=== PATIENT | male | born 1950 | race Caucasian/White ===

== ENCOUNTER → 2020-04-25 | Outpatient (CLI) | payer MEDICARE ==
[~2020-04-25] MED LIST: ACET325T9 PO; AMLO-187 PO; ASPI-630 PO; ATEN25TA PO; BUPIVACAINE MPF 0.25% 10 ML VIAL. ONE; EVOL140P3 SQ; GLIP5TAB10 PO; GLUC-11 PO; INSU100C SQ; INSU100I30 SQ; METF10007 PO; MULT-252 PO; methylPREDNISolone ACETATE 40 MG/ML VIAL. ONE
--- NOTE | 2020-04-25 12:44 | PDOC1 ---
INITIAL PAIN CONSULT DATE OF SERVICE: DOS: DATE: 04/25/20 TIME: 12:35 CHIEF COMPLAINT: Chief Complaint: Bilateral lower extremity pain HISTORY OF PRESENT ILLNESS: 69-year-old male presents history of pain starting after an injury he reports he was pulled from a hospital bed after coronary artery bypass grafting approximate 1 year ago June 01, 2019. Patient reports that time he had no pain prior to that except for postsurgical pain but now has a right rotator cuff tear and pain in the bilateral lower extremities and some in the low back initially but that has cleared up to some extent. Patient reports he has pain in the lateral thighs bilaterally from the hip to the knee essentially some in the anterior thighs as well. Patient reports it stabbing intermittently can be sharp and knifelike and constant numbness in the lateral aspects of the thighs as well patient reports that sharp pain come and go without any expectable pattern but usually more noticeable with standing or walking but can awaken him from sleep at night but not most nights. Patient ports is not effective bowel bladder control but does affect his ability to walk at times patient has had physical therapy which is not helpful is also taking Tylenol which has been mildly helpful as well patient have MRI scan lumbar spine showing multiple levels of degenerative changes and bulging disks L3-4 L4-5 L5-S1 with disc osteophyte complexes and some moderate bilateral foraminal narrowing at L3-4 and L45 as well as L5-S1 with marked right foraminal narrowing at L5-S1. Patient reports no overt motor loss but significant fatigability of both lower extremities with ambulation. PAST MEDICAL HISTORY: PMH: Coronary artery disease, diabetes, arthritis PREVIOUS SURGERIES: Past Surgical Hx: Coronary artery bypass grafting May 2019, throat surgery, facial lymph node excision, left shoulder surgery 1998 CURRENT MEDICATIONS: Current Meds: Active Scripts Medications Dose Route/Sig Max Daily Dose Days Date Category One Daily Men's Health Tablet (Multivits-Minerals/Fa/Lycopene) 1 Each Tablet 1 Tab PO DAILY 30 04/25/20 Reported Humalog (Insulin Lispro) 100 Unit/1 Ml Cartridge 100 Unit SQ PRN PRN 04/25/20 Reported Repatha Sureclick (Evolocumab) 140 Mg/1 Ml Pen.injctr 1 Syr SQ Q2WKS 28 04/25/20 Reported Tresiba Flextouch U-100 (Insulin Degludec) 100 Unit/1 Ml Insuln.pen 10 Unit SQ DAILY 04/25/20 Reported Tylenol (Acetaminophen) 325 Mg Tablet 500 Mg PO 2-3XD 04/25/20 Reported Cidaflex Tablet (Glucosamine Hcl/Chondr Johnson A Na) 1 Each Tablet 1 Each PO DAILY PRN 04/25/20 Reported Glipizide 5 Mg Tablet 1 Tab PO DAILY 04/25/20 Reported Aspirin 81 Mg Tab.chew 1 Tab PO DAILY 04/25/20 Reported Amlodipine Besylate 10 Mg Tablet 10 Mg PO DAILY 04/25/20 Reported Metformin Hcl 1,000 Mg Tablet 1,000 Mg PO BIDWMEALS 04/25/20 Reported Atenolol 25 Mg Tablet 1 Tab PO DAILY 04/25/20 Reported ALLERGIES; Allergies: Coded Allergies: Snwzlhz-Phx-Vuc Reductase Inhibitor (Verified Allergy, Intermediate, 04/25/20) Pain musle tears hyperglycemia aspirin (Verified Allergy, Intermediate, shock, 04/25/20) metoprolol (Verified Allergy, Intermediate, swelling, 04/25/20) FAMILY HISTORY: Family Hx: Heart disease SOCIAL HISTORY: Social Hx: Patient is under alcohol does not smoke does not use any illegal illicit recreational drugs is single lives locally in [facility] REVIEW OF SYSTEMS: ROS: Positive for those items mentioned in history of present illness, all systems are reviewed, otherwise negative, is complete full and well-documented on patient's chart PHYSICAL EXAM: VS: Blood pressure is 154/81 pulse 71 respirations 18 temperature 98.1 F height is 6 foot weight is 273 pounds PE: PHYSICAL EXAMINATION: GENERAL: The patient is awake, alert, oriented, appropriate, very pleasant demeanor HEENT: Shows normocephalic, atraumatic. Extraocular movements are intact and symmetrical. Oral cavity: Mucous membranes moist and pink. Dentition is intact. NECK: Shows anterior throat supple without palpable lymphadenopathy noted. Swallow reflex symmetrical. CHEST: Shows normal on inspection. Sternotomy scar noted breath sounds are clear bilaterally, no rales rhonchi wheezes auscultated. HEART: Shows S1, S2 clear. No murmurs auscultated. ABDOMEN: Soft, nontender, nondistended, obese. No palpable organomegaly is noted. No rebound or guarding demonstrated. BACK: Shows spine grossly in the midline. Normal-appearing cervical lordotic curvature. There is increased thoracic kyphosis, some minor flattening of the lumbar lordotic curvature. Lumbar paraspinous muscles show symmetrical on inspection, on palpation shows some mild tenderness diffusely throughout the upper, middle and lower distribution of the paraspinous muscles bilaterally without specific trigger points, without radiation of pain. The patient has good rotational motion of the lumbar spine, both laterally as well as extension and flexion without significant difficulty. No tenderness over the spinous processes, sacrum or sacroiliac regions. EXTREMITIES: Lower extremities show deep tendon reflexes 1+ in the patellar and tendo calcaneus tendons. Motor exam is 5 on a scale of 5 with right dorsiflexion, extension, quadriceps and hamstring flexion and 5/5 on the left. Peripheral pulses are 1+ posterior tibial. No peripheral edema is noted bilaterally. Lower extremities are warm and dry to touch, equal in color and appearance. Straight leg raise noted to be negative bilaterally. Gaenslen's and Konstantin's maneuvers are negative as well. Patient's lateral thigh shows significant tenderness over the iliotibial tendon at the insertion site es pecially above the knee laterally as well as at the hip laterally bilaterally somewhat more tender on the right with palpation but significantly tender on the left as well. Patient shows good extension flexion at the hip as well as abduction and adduction without significant increase in pain. The patient is able to stand, stand on his toes without significant difficulty or loss of balance walks with a normal-appearing gait for short distance the office today but without using any assistive devices. SKIN: Shows warm and dry, good turgor. No edema. No sores, rashes or bruising throughout. IMPRESSION: Impression: 69-year-old male with approximate 1 year history pain bilateral lower extremities after injury June 01, 2019 MRI scan lumbar spine as noted Diabetes Arthritis Plan: Options were discussed with the patient. Including conservative medical management is interventional techniques as well as physical therapies. Patient would like to pursue interventional techniques we discussed iliotibial band injection bilaterally using description as well as anatomical models to describe the procedure. Risks discussed including but not limited to bleeding infection possibility of intravascular injection sequelae spread local acetic numbness side effects of steroid medication and portal scarring pain control. Patient understands wished to proceed. Patient return to clinic in approximate 2 weeks for follow-up, was counseled as to return appointment activity level and side effects to be aware of. Under sterile prep and drape patient in supine position patient's iliotibial bands were injected using 25-gauge needle at both the hip insertion and the lateral insertion at the knee after negative aspiration. Total of 10 cc 0.25% ropivacaine (2.5 cc at each injection site) and total of 40 mg Depo-Medrol. Patient tolerated procedure well had no complications. Patient return to clinic in approximate 2 weeks for follow-up. BRENDA DHALIWAL MD Apr 25, 2020 12:44
== END | disposition home or self-care (01) ==
LOC: UNMERGE 10:52 → PNCL 10:52 → MERGE 10:52
PROVIDERS: ATTEND Anesthesiology
DX: M79.605 Pain in left leg (principal); M79.604 Pain in right leg; I25.10 Atherosclerotic heart disease of native coronary artery without angina pectoris; E11.9 Type 2 diabetes mellitus without complications; M19.90 Unspecified osteoarthritis, unspecified site; Z79.4 Long term (current) use of insulin; Z79.899 Other long term (current) drug therapy; Z98.890 Other specified postprocedural states
CPT/HCPCS: 20550; J1030; J3490; 20553

== ENCOUNTER → 2020-05-13 | Outpatient (CLI) | payer MEDICARE ==
[~2020-05-13] MED LIST changes: -BUPIVACAINE MPF 0.25% 10 ML VIAL. ONE; +IOHEXOL 180 MG/ML 10 ML VIAL. ONE; +methylPREDNISolone ACETATE 80 MG/ML VIAL. ONE
--- NOTE | 2020-05-13 13:02 | PDOC ---
Progress Note - Pain Clinic Date of Service: DOS: DATE: 05/13/20 TIME: 12:59 Diagnosis: Dx: Lumbar radiculopathy with lumbar degenerative disease Iliotibial band syndromebilateral History or Present Illness: HPI: 69-year-old male returns follow-up status post iliotibial band injections bilaterally. Patient reports no significant decrease in pain in his leg pain and now has more pain in the low back itself bilaterally radiating from the right to the left and slightly more on the left side but present bilaterally patient reports is burning and aching and sharp in the lower extremities can be constant with walking standing on and off in intensity with on and off stabbing pain in the back itself patient reports it is a 7-9 on scale 10 is worse over the past week 7 on average 7 its least is a 7 today. Patient reports no new motor or sensory deficits no new bowel or bladder incontinence or other complai nts. We did discuss the MRI scan with the patient and reviewed it with him today as well. Physical Exam: VS: Blood pressure is 161/78, pulse 83 respirations 20 temperature is 98.3 F weight is 276 pounds PE: PHYSICAL EXAMINATION: GENERAL: The patient is awake, alert, oriented, appropriate, very pleasant demeanor HEENT: Shows normocephalic, atraumatic. Extraocular movements are intact and symmetrical. Oral cavity: Mucous membranes moist and pink. NECK: Shows anterior throat supple without palpable lymphadenopathy noted. Swallow reflex symmetrical. CHEST: Shows normal on inspection. Breath sounds are clear bilaterally. HEART: Shows S1, S2 clear. No murmurs auscultated. ABDOMEN: Soft, nontender, nondistended, obese. No palpable organomegaly is noted. No rebound or guarding demonstrated. BACK: Shows spine grossly in the midline. Normal-appearing cervical lordotic curvature. There is slightly increased thoracic kyphosis, some minor flattening of the lumbar lordotic curvature. Lumbar paraspinous muscles show symmetrical on inspection, on palpation shows some moderate tenderness diffusely throughout the upper, middle and lower distribution of the paraspinous muscles, but without specific trigger points, without radiation of pain. The patient has good rotational motion of the lumbar spine, both laterally as well as extension and flexion without significant difficulty. No tenderness over the spinous processes, sacrum or sacroiliac regions. EXTREMITIES: Lower extremities show deep tendon reflexes 1+ in the patellar and tendo calcaneus tendons. Motor exam is 5 on a scale of 5 with right dorsiflexion, extension, quadriceps and hamstring flexion and 5/5 on the left. Peripheral pulses are 1+ posterior tibial. No peripheral edema is noted bilaterally. Lower extremities are warm and dry to touch, equal in color and appearance. SKIN: Shows warm and dry, good turgor. No edema. No sores, rashes or bruising throughout. Procedure: Procedure: Options were discussed with the patient. Patient will chart reviews his current medication regimen updated current review of systems updated today as well. We will proceed with a lumbar epidural steroid injection today with fluoroscopic guidance. Risks were discussed including but not limited to: Bleeding, infection, possibility of epidural hematoma and subsequent neurological compromise, dural puncture, headaches, spinal cord and/or nerve damage, side effects of steroid medication, and poor results regarding pain control. Patient understands wished to proceed. Patient return to clinic in approximate 2 weeks for follow-up was counseled as to return appointment activity level and side effects to be aware of. Medication Injected: Med Injected: Procedure is lumbar epidural steroid injection under local anesthetic using sterile prep and drape at the L4-5 level using C-arm fluoroscopic guidance in both AP and lateral views medications injected is 120 mg Depo-Medrol + 10 mL preservative-free normal saline and 2 mL contrast- condition at discharge is stable patient tolerated procedure well had no complications. Condition at Discharge: Condition at Discharge: Condition at discharge stable, patient tolerated the procedure well and had no complications. BRENDA DHALIWAL MD May 13, 2020 13:02
== END | disposition home or self-care (01) ==
LOC: PNCL 11:23 → MERGE 11:40 → UNMERGE 11:40
PROVIDERS: ATTEND Anesthesiology
DX: M51.16 Intervertebral disc disorders with radiculopathy, lumbar region (principal); M76.32 Iliotibial band syndrome, left leg; M76.31 Iliotibial band syndrome, right leg; Z79.82 Long term (current) use of aspirin; Z79.84 Long term (current) use of oral hypoglycemic drugs; Z79.899 Other long term (current) drug therapy; Z98.890 Other specified postprocedural states; Z88.8 Allergy status to other drugs, medicaments and biological substances
CPT/HCPCS: 62323; J1030; J1040; Q9965

== ENCOUNTER → 2020-05-27 | Outpatient (CLI) | payer MEDICARE ==
--- NOTE | 2020-05-27 12:27 | PDOC ---
Progress Note - Pain Clinic Date of Service: DOS: DATE: 05/27/20 TIME: 12:25 Diagnosis: Dx: Lumbar radiculopathy with lumbar degenerative disc disease Iliotibial band syndrome bilateral History or Present Illness: HPI: 69-year-old male returns for follow-up status post lumbar epidural steroid injection x1. Patient reports about 50% improvement in the numbness in his lower extremities with the left side almost completely resolved but still some numbness on the right. Patient reports is in the low back and right posterior lateral thigh more than the left but present bilaterally lateral aspect of thigh medial aspect of the thigh and knee as well patient reports its burning and numb stabbing at times can be constant worse with walking standing better with sitting or laying down does not awaken him from sleep at night. Patient reports pain is a 5 on a scale of 10 is worse with past week for an average for its least is a 4 today. Patient reports no new motor or sensory deficits no new bowel or bladder incontinence or other complaints. Physical Exam: VS: Blood pressure 130/80 pulse 73 respirations 18 temperature 98.0 F weight is 274 pounds PE: PHYSICAL EXAMINATION: GENERAL: The patient is awake, alert, oriented, appropriate, very pleasant demeanor HEENT: Shows normocephalic, atraumatic. Extraocular movements are intact and symmetrical. NECK: Shows anterior throat supple without palpable lymphadenopathy noted. Swallow reflex symmetrical. CHEST: Shows normal on inspection. Breath sounds clear bilaterally. HEART: Shows S1, S2 clear. No murmurs auscultated. ABDOMEN: Soft, nontender, nondistended, obese. No palpable organomegaly is noted. No rebound or guarding demonstrated. BACK: Shows spine grossly in the midline. Normal-appearing cervical lordotic curvature. There is slightly increased thoracic kyphosis, some minor flattening of the lumbar lordotic curvature. Lumbar paraspinous muscles show symmetrical on inspection, on palpation shows some moderate tenderness diffusely throughout the upper, middle and lower distribution of the paraspinous muscles, but without specific trigger points, without radiation of pain. The patient has good rotational motion of the lumbar spine, both laterally as well as extension and flexion without significant difficulty. EXTREMITIES: Lower extremities show deep tendon reflexes 1+ in the patellar and tendo calcaneus tendons. Motor exam is 5 on a scale of 5 with right dorsiflexion, extension, quadriceps and hamstring flexion and 5/5 on the left. Peripheral pulses are 1+ posterior tibial. No peripheral edema is noted bilaterally. Lower extremities are warm and dry to touch, equal in color and appearance. SKIN: Shows warm and dry, good turgor. No edema. No sores, rashes or bruising throughout. Procedure: Procedure: Options were discussed with the patient. Patient's old chart was reviewed his current medication regimen updated current review of systems updated today as well. We will proceed with a second lumbar epidural steroid injection today with fluoroscopic guidance. Risks were discussed including but not limited to: Bleeding, infection, possibility of epidural hematoma and subsequent neurological compromise, dural puncture, headaches, spinal cord and/or nerve damage, side effects of steroid medication, and poor results regarding pain control. Patient understands wished to proceed. Patient return to clinic in approximate 2 weeks for follow-up, was counseled as to return appointment activity level, and side effects to be aware of. Medication Injected: Med Injected: Procedure is lumbar epidural steroid injection under local anesthetic using sterile prep and drape at the L4-5 level using C-arm fluoroscopic guidance in both AP and lateral views medications injected is 120 mg Depo-Medrol + 10 mL preservative-free normal saline and 2 mL contrast- condition at discharge is stable patient tolerated procedure well had no complications. Condition at Discharge: Condition at Discharge: Condition at discharge stable, patient tolerated the procedure well and had no complications. BRENDA DHALIWAL MD May 27, 2020 12:27
== END | disposition home or self-care (01) ==
LOC: PNCL 10:55
PROVIDERS: ATTEND Anesthesiology
DX: M51.16 Intervertebral disc disorders with radiculopathy, lumbar region (principal); M79.3 Panniculitis, unspecified; Z98.890 Other specified postprocedural states; Z88.6 Allergy status to analgesic agent; Z88.8 Allergy status to other drugs, medicaments and biological substances
CPT/HCPCS: 62323; J1030; J1040; Q9965

== ENCOUNTER → 2020-06-10 | Outpatient (CLI) | payer MEDICARE ==
--- NOTE | 2020-06-10 14:09 | PDOC4 ---
PROCEDURE Procedure Patient was consented for lumbar epidural steroid injection. Risks were dis cussed including but not limited to: Bleeding, infection, possibility of epidural hematoma and subsequent neurological compromise, dural puncture, headaches, spinal cord and/or nerve damage, side effects of steroid medication, and poor results regarding pain control. Patient understands and wished to proceed. Procedure is lumbar epidural steroid injection under local anesthetic using sterile prep and drape at the L4-5 level using C-arm fluoroscopic guidance in both AP and lateral views medications injected is 120 mg Depo-Medrol + 10 mL preservative-free normal saline and 2 mL contrast- condition at discharge is stable patient tolerated procedure well had no complications. BRENDA DHALIWAL MD Jun 10, 2020 14:09
--- NOTE | 2020-06-10 14:09 | PDOC ---
Progress Note - Pain Clinic Date of Service: DOS: DATE: 06/10/20 TIME: 14:06 Diagnosis: Dx: Lumbar radiculopathy with lumbar degenerative disc disease History or Present Illness: HPI: 69-year-old male returns to follow-up status post lumbar epidural steroid injections x2. Patient reports about 80% improvement overall in the low back and bilateral lower extremity pain patient reports his left leg is doing much better right still has some significant pain in the posterior gluteus lateral thigh anterior thigh medial thigh occasionally does on the left side but mostly the right is more noticeable. Patient reports he has been increasing his distance walking doing household activities work walking faster sleeping much better as well and traveling with greater ease and comfort. Patient reports no new motor or sensory deficit does not awaken him sleep at night no bowel or bladder incontinence or other complaints patient rates pain is a 5 on a scale 10 is worst over the past week 2 on average to its least is a 2 today. Patient rep orts no new motor or sensory deficits patient reports that the pain is sharp now in the low back some burning and numbness and stabbing that can be constant at times with extended walking but is only on and off and much better with sitting or laying down. Patient reports no new changes Physical Exam: VS: Blood pressure is 120/77 pulse 79 respirations 16 temperature is 98.2 F weight is 275 pounds PE: PHYSICAL EXAMINATION: GENERAL: The patient is awake, alert, oriented, appropriate, very pleasant demeanor HEENT: Shows normocephalic, atraumatic. Extraocular movements are intact and symmetrical. NECK: Shows anterior throat supple without palpable lymphadenopathy noted. Swallow reflex symmetrical. CHEST: Shows normal on inspection. Breath sounds are clear bilaterally. HEART: Shows S1, S2 clear. No murmurs auscultated. ABDOMEN: Soft, nontender, nondistended, obese. No palpable organomegaly is noted. BACK: Shows spine grossly in the midline. Normal-appearing cervical lordotic curvature. There is increased thoracic kyphosis, some flattening of the lumbar lordotic curvature. Lumbar paraspinous muscles show symmetrical on inspection, on palpation shows some moderate tenderness diffusely throughout the upper, middle and lower distribution of the paraspinous muscles, but without specific trigger points, without radiation of pain. The patient has good rotational motion of the lumbar spine, both laterally as well as extension and flexion without significant difficulty. No tenderness over the spinous processes, sacrum or sacroiliac regions. EXTREMITIES: Lower extremities show deep tendon reflexes 1+ in the patellar and tendo calcaneus tendons. Motor exam is 5 on a scale of 5 with right dorsiflexion, extension, quadriceps and hamstring flexion and 5/5 on the left. Peripheral pulses are 1+ posterior tibial. No peripheral edema is noted bilaterally. Lower extremities are warm and dry to touch, equal in color and appearance. SKIN: Shows warm and dry, good turgor. No edema. No sores, rashes or bruising throughout. Procedure: Procedure: Options were discussed with the patient. Patient chart reviews his current medication regimen updated current review of systems updated today as well. We will proceed with a third in the series lumbar epidural steroid injection today with fluoroscopic guidance. Risks were discussed including but not limited to: Bleeding, infection, possibility of epidural hematoma and subsequent neurological compromise, dural puncture, headaches, spinal cord and/or nerve damage, side effects of steroid medication, and poor results regarding pain control. Patient understands and wished to proceed. Patient will return to clinic in approximate 2 weeks for follow-up, was counseled as return appointment activity level, and side effects to be aware of. Medication Injected: Med Injected: Procedure is lumbar epidural steroid injection under local anesthetic using sterile prep and drape at the L4-5 level using C-arm fluoroscopic guidance in both AP and lateral views medications injected is 120 mg Depo-Medrol + 10 mL preservative-free normal saline and 2 mL contrast- condition at discharge is stable patient tolerated procedure well had no complications. Condition at Discharge: Condition at Discharge: Condition at discharge stable, patient tolerated procedure well and had no complications. BRENDA DHALIWAL MD Jun 10, 2020 14:09
== END | disposition home or self-care (01) ==
LOC: PNCL 13:05
PROVIDERS: ATTEND Anesthesiology
DX: M51.16 Intervertebral disc disorders with radiculopathy, lumbar region (principal); Z79.82 Long term (current) use of aspirin; Z79.84 Long term (current) use of oral hypoglycemic drugs; Z79.899 Other long term (current) drug therapy; Z98.890 Other specified postprocedural states; Z88.8 Allergy status to other drugs, medicaments and biological substances; Z88.5 Allergy status to narcotic agent
CPT/HCPCS: 62323; J1030; J1040; Q9965

== ENCOUNTER → 2021-02-28 | Outpatient (CLI) | payer MEDICARE ==
--- NOTE | 2021-02-28 12:50 | PDOC4 ---
Procedure Note: ICD 10 Code: ICD 10 Code: M54.16 M51.36 Procedure Note: Patient was consented for lumbar epidural steroid injection with fluoroscopic guidance. Risks were discussed including but not limited to: Bleeding, infection, possibility of epidural hematoma and subsequent neurological compromise, dural puncture, headaches, spinal cord and/or nerve damage, side effects of steroid medication, and poor results regarding pain control. Patient understands and wished to proceed. Procedure is lumbar epidural steroid injection under local anesthetic using sterile prep and drape at the L4-5 level using C-arm fluoroscopic guidance in both AP and lateral views medications injected is 120 mg Depo-Medrol +10mL preservative-free normal saline and 2 mL contrast- condition at discharge is stable patient tolerated procedure well had no complications. BRENDA DHALIWAL MD Feb 28, 2021 12:50
--- NOTE | 2021-02-28 12:50 | PDOC ---
Progress Note - Pain Clinic Date of Service: DOS: DATE: 02/28/21 TIME: 12:46 Diagnosis: Dx: Lumbar radiculopathy with lumbar degenerative disc disease Right shoulder joint pain with osteoarthritis History or Present Illness: HPI: 70-year-old male returns for follow-up status post lumbar epidural steroid injection last seen June 10, 2020 patient very well about 80% 200% improvement for several months. Patient reports pain returning down the low back and bilateral lower extremities right seems equal to left with some nu mbness and tingling not quite back to baseline but getting close patient reports is a sharp and stabbing pain in the back radiating constant with numbness in the legs bilaterally in the anterior thighs anterior medial thighs as well as the low back into the gluteus regions bilaterally this is worse with walking standing changing positions better with sitting or laying down generally does not awaken her from sleep at night. Patient reports no bowel or bladder incontinence. Patient reports pain is a 9 on scale 10 is worse over the past week 6 on average 3 at its least is a 5 today. Patient reports no new motor deficits but significant fatigability the lower extremities with ambulation. Physical Exam: VS: Blood pressure 142/67 pulse 64 respirations 16 temperature 98.4 F height is 5 foot 10 inches weight is 275 pounds PE: PHYSICAL EXAMINATION: GENERAL: The patient is awake, alert, oriented, appropriate, very pleasant in demeanor HEENT: Shows normocephalic, atraumatic. Extraocular movements are intact and symmetrical. Patient wearing eyeglasses oral cavity: Mucous membranes moist and pink. Dentition is intact. NECK: Shows anterior throat supple without palpable lymphadenopathy noted. Swallow reflex symmetrical. CHEST: Shows normal on inspection. Breath sounds are clear bilaterally, distant but no rales or rhonchi auscultated. HEART: Shows S1, S2 clear. No murmurs auscultated. ABDOMEN: Soft, nontender, nondistended, obese. No palpable organomegaly is noted. BACK: Shows spine grossly in the midline. Normal-appearing cervical lordotic curvature. There is slightly increased thoracic kyphosis, some minor flattening of the lumbar lordotic curvature. Lumbar paraspinous muscles show symmetrical on inspection, on palpation shows some moderate tenderness diffusely throughout the upper, middle and lower distribution of the paraspinous muscles without specific trigger points, without radiation of pain. The patient has good rotational motion of the lumbar spine, both laterally as well as extension and flexion without significant difficulty. EXTREMITIES: Lower extremities show deep tendon reflexes 1+ in the patellar and tendo calcaneus tendons. Motor exam is 5 on a scale of 5 with right dorsiflexion, extension, quadriceps and hamstring flexion and 5/5 on the left. Peripheral pulses are 1+ posterior tibial. No peripheral edema is noted bilaterally. Lower extremities are warm and dry to touch, equal in color and appearance. Upper extremity show deep tendon reflexes 2+ in the bicep tricep tendons, motor exam strong with wellness guide strength rated 5 out of 5 as is bicep and tricep flexion. Patient's right shoulder shows significant tenderness in the posterior aspect of the shoulder joint itself but with increased pain with abduction at approximately 90 degrees. Left side is nontender. SKIN: Shows warm and dry, good turgor. No edema. No sores, rashes or bruising throughout. Procedure: Procedure: Options were discussed with the patient. Patient's old chart was reviewed his current medication regimen updated current review of systems updated today as well. We will proceed with a lumbar epidural steroid injection today with fluoroscopic guidance. Risks were discussed including but not limited to: Bleeding, infection, possibility of epidural hematoma and subsequent neurological compromise, dural puncture, headaches, spinal cord and/or nerve damage, side effects of steroid medication, and poor results regarding pain control. Patient understands and wished to proceed. Patient will return to the clinic in approximately 2 weeks for follow-up, was counseled as to return appointment active level and side effects to be aware of. Medication Injected: Med Injected: Procedure is lumbar epidural steroid injection under local anesthetic using sterile prep and drape at the L4-5 level using C-arm fluoroscopic guidance in both AP and lateral views medications injected is 120 mg Depo-Medrol +10mL preservative-free normal saline and 2 mL contrast- condition at discharge is stable patient tolerated procedure well had no complications. Condition at Discharge: Condition at Discharge: Condition at discharge is stable, patient tolerated the procedure well and had no complications. BRENDA DHALIWAL MD Feb 28, 2021 12:50
== END | disposition home or self-care (01) ==
LOC: PNCL 11:54
PROVIDERS: ATTEND Anesthesiology
DX: M51.16 Intervertebral disc disorders with radiculopathy, lumbar region (principal); M19.011 Primary osteoarthritis, right shoulder; Z79.82 Long term (current) use of aspirin; Z79.4 Long term (current) use of insulin; Z79.899 Other long term (current) drug therapy; Z88.8 Allergy status to other drugs, medicaments and biological substances
CPT/HCPCS: 62323; J1030; J1040; Q9965

== ENCOUNTER → 2021-03-19 | Outpatient (CLI) | payer MEDICARE ==
[~2021-03-19] MED LIST changes: +BUPIVACAINE MPF 0.25% 10 ML VIAL. ONE; -methylPREDNISolone ACETATE 40 MG/ML VIAL. ONE
--- NOTE | 2021-03-19 14:33 | PDOC ---
Progress Note - Pain Clinic Date of Service: DOS: DATE: 03/19/21 TIME: 14:28 Diagnosis: Dx: Lumbar radiculopathy lumbar degenerative disease Right shoulder joint pain with osteoarthritis Iliotibial band syndrome bilaterally History or Present Illness: HPI: 70-year-old male returns for follow-up status post lumbar epidural steroid traction x1. Patient reports about 50% improvement doing much better with his back and increasing daily activities try with greater ease and walking greater distances patient reports his chief complaint today however is right shoulder joint pain she has had significant pain and has been followed by an orthopedist in the past has documented osteoarthritis of the right shoulder which is done well in the past with treatment. Patient reports he does not currently see an orthopedist for the shoulder joint pain. Patient reports pain to 7 on scale 10 is worse over the past week for an average 3 its least and is a 4 today. Patient reports is worse with reaching weightbearing repetitive motions reaching over his head with his right hand also disturbed sleep about once every 4-5 hours patient reports no loss of motor function but significant fatigability of the right shoulder with some pain in the right base of the neck as well use and especially with lifting. Patient reports no loss of motor function but significant fatigability is noted. Physical Exam: VS: Blood pressure is 147/79 pulse 73 respirations are 18 temperature is 98.1 F weight is 274 pounds. PE: PHYSICAL EXAMINATION: GENERAL: The patient is awake, alert, oriented, appropriate, very pleasant in demeanor HEENT: Shows normocephalic, atraumatic. Extraocular movements are intact and symmetrical. Patient wearing eyeglasses. Oral cavity: Mucous membranes moist and pink. NECK: Shows anterior throat supple without palpable lymphadenopathy noted. Swallow reflex symmetrical. CHEST: Shows normal on inspection. Breath sounds are clear bilaterally. HEART: Shows S1, S2 clear. No murmurs auscultated. ABDOMEN: Soft, nontender, nondistended, obese. No palpable organomegaly is noted. BACK: Shows spine grossly in the midline. Normal-appearing cervical lordotic curvature. There is increased thoracic kyphosis, some flattening of the lumbar lordotic curvature. Lumbar paraspinous muscles show symmetrical on inspection, on palpation shows some moderate tenderness diffusely throughout the upper, middle and lower distribution of the paraspinous muscles, but without specific trigger points, without radiation of pain. The patient has good rotational motion of the lumbar spine, both laterally as well as extension and flexion without significant difficulty. No tenderness over the spinous processes, sacrum or sacroiliac regions. EXTREMITIES: Lower extremities show deep tendon reflexes 1+ in the patellar and tendo calcaneus tendons. Motor exam is 5 on a scale of 5 with right dorsifle xion, extension, quadriceps and hamstring flexion and 5/5 on the left. Peripheral pulses are 1+ posterior tibial. No peripheral edema is noted bilaterally. Lower extremities are warm and dry to touch, equal in color and appearance. Upper extremity show deep tendon reflexes 2+ in the bicep tricep tendons. Motor exam is strong with 5 out of 5 neurosurgical nurse practitioner strength as is bicep and tricep flexion. Patient's right shoulder shows significant tenderness with anterior and posterior palpation most especially in the posterior lateral aspect of the posterior deltoid. Range of motion is slightly significant tenderness with abduction past 45 degrees especially with resistance but no loss of strength on resistance. Left side shows full rotation motion without difficulty. SKIN: Shows warm and dry, good turgor. No edema. No sores, rashes or bruising throughout. Procedure: Procedure: Options discussed with the patient. Patient chart was reviewed his current medication regimen updated current review of systems updated today as well. We will proceed with a right intra-articular glenohumeral shoulder joint injection today with fluoroscopic guidance. Risks are discussed including not limited to bleeding infection possibility of intravascular injection sequelae spread local anesthetic numbness side effects steroid medication exposure fluoroscopy and portals regarding pain control. Patient understands wished to proceed. Patient return to clinic in approximately 2 weeks for follow-up, was counseled return appointment, typical, and side effects beware of. Medication Injected: Med Injected: Patient supine position under sterile prep and drape using C-arm fluoroscopic guidance patient's right shoulder was visualized and using 25-gauge needle 1% lidocaine was used to topically anesthetized area over the glenohumeral joint on the right. Using a 22-gauge Quincke needle with stylette the joint was entered under direct fluoroscopic visualization without difficulty stylet was removed at this time 2 cc of contrast was injected with good intra-articular spread in the shoulder joint without uptake. At this time 3 cc of 0.25% bupivacaine and 80 mg Depo-Medrol was then injected into the joint. Needle was removed and sterile ba ndage was applied. Patient tolerated the procedure well and had no complications. Condition at Discharge: Condition at Discharge: Condition at discharge stable, patient tolerated the procedure well and had no complications. BRENDA DHALIWAL MD Mar 19, 2021 14:33
--- NOTE | 2021-03-19 14:34 | PDOC4 ---
Procedure Note: ICD 10 Code: ICD 10 Code: M2 5.511 M1 9.011 Procedure Note: Patient was consented for right intra-articular shoulder joint injection with fluoroscopic guidance. Risks were discussed including, but not limited to bleeding infection possibility of intravascular injection sequelae spread local anesthetic numbness side effects steroid medications post arthroscopy and portals regarding pain control. Patient understands wished to proceed. Patient supine position under sterile prep and drape using C-arm fluoroscopic guidance patient's right shoulder was visualized and using 25-gauge needle 1% lidocaine was used to topically anesthetized area over the glenohumeral joint on the right. Using a 22-gauge Quincke needle with stylette the joint was entered under direct fluoroscopic visualization without difficulty stylet was removed at this time 2 cc of contrast was injected with good intra-articular spread in the shoulder joint without uptake. At this time 3 cc of 0.25% bupivacaine and 80 mg Depo-Medrol was then injected into the joint. Needle was removed and sterile bandage was applied. Patient tolerated the procedure well and had no complications. BRENDA DHALIWAL MD Mar 19, 2021 14:34
== END | disposition home or self-care (01) ==
LOC: PNCL 13:46
PROVIDERS: ATTEND Anesthesiology
DX: M25.511 Pain in right shoulder (principal); M19.011 Primary osteoarthritis, right shoulder; M51.16 Intervertebral disc disorders with radiculopathy, lumbar region
CPT/HCPCS: 20610; 77002; J1040; J3490; Q9965

== ENCOUNTER → 2021-04-02 | Outpatient (CLI) | payer MEDICARE ==
[~2021-04-02] MED LIST changes: -BUPIVACAINE MPF 0.25% 10 ML VIAL. ONE; +methylPREDNISolone ACETATE 40 MG/ML VIAL. ONE
--- NOTE | 2021-04-02 13:42 | PDOC ---
Progress Note - Pain Clinic Date of Service: DOS: DATE: 04/02/21 TIME: 13:39 Diagnosis: Dx: Lumbar radiculopathy with lumbar degenerative disc disease Right shoulder joint pain with osteoarthritis and rotator cuff tear History or Present Illness: HPI: 70-year-old male returns for follow-up status post right intra-articular shoulder joint injection with about 95% improvement patient reports increased mobility range of motion and strength in the right arm with much decreased pain patient is very pleased with his progress with his right shoulder reports to be at an increased activity greater ease and comfort his main complaint today is low back and bilateral lower extremity pain the posterior gluteus rating the posterior thighs lateral thighs hips and medial thighs medial lower legs patient reports is a 5 on scale 10 is worse over the past week for an average 3 its least is a 4 today patient reports burning and stabbing on and off in intensity but can be constant and pain just increased intensity with activity walking standing changing positions better with sitting or lying down generally does not awaken her from sleep at night patient reports no bowel or bladder incontinence. Physical Exam: VS: Blood pressure is 131/70 pulse 80 respirations 20 temperature 98.7 F height is 5 foot 10 inches weight is 279 pounds. PE: PHYSICAL EXAMINATION: GENERAL: The patient is awake, alert, oriented, appropriate, very pleasant in demeanor HEENT: Shows normocephalic, atraumatic. Extraocular movements are intact and symmetrical. Patient wearing eyeglasses. Oral cavity: Mucous membranes moist and pink. Dentition is intact. NECK: Shows anterior throat supple without palpable lymphadenopathy noted. Swallow reflex symmetrical. CHEST: Shows normal on inspection. Breath sounds are clear bilaterally, no rales or rhonchi. HEART: Shows S1, S2 clear. No murmurs auscultated. ABDOMEN: Soft, nontender, nondistended. No palpable organomegaly is noted. No rebound or guarding demonstrated. BACK: Shows spine grossly in the midline. Normal-appearing cervical lordotic curvature. There is increased thoracic kyphosis, some flattening of the lumbar lordotic curvature. Lumbar paraspinous muscles show symmetrical on inspection, on palpation shows some moderate tenderness diffusely throughout the upper, middle and lower distribution of the paraspinous muscles, but without specific trigger points, without radiation of pain. The patient has good rotational motion of the lumbar spine, both laterally as well as extension and flexion without significant difficulty. EXTREMITIES: Lower extremities show deep tendon reflexes 1 in the patellar and tendo calcaneus tendons. Motor exam is 5 on a scale of 5 with right dorsiflexion, extension, quadriceps and hamstring flexion and 5/5 on the left. Peripheral pulses are 1+ posterior tibial. No peripheral edema is noted bilaterally. Lower extremities are warm and dry. SKIN: Shows warm and dry, good turgor. No edema. No sores, rashes or bruising throughout. Procedure: Procedure: Options discussed with patient. Patient chart was reviewed as was his current medication updated, and current review of systems updated today as well. We will proceed with a lumbar epidural steroid injection today with fluoroscopic guidance. Risks were discussed including but not limited to: Bleeding, infection, possibility of epidural hematoma and subsequent neurological compromise, dural puncture, headaches, spinal cord and/or nerve damage, side effects of steroid medication, and poor results regarding pain control. Patient understands and wished to proceed. Patient will return to clinic in approximate 2 weeks for follow-up, was counseled as return appointment, activity level, and side effect to aware of. Medication Injected: Med Injected: Procedure is lumbar epidural steroid injection under local anesthetic using sterile prep and drape at the L4-5 level using C-arm fluoroscopic guidance in both AP and lateral views medications injected is 120 mg Depo-Medrol +10mL preservative-free normal saline and 2 mL contrast- condition at discharge is stable patient tolerated procedure well had no complications. Condition at Discharge: Condition at Discharge: Condition at discharge stable, patient tolerated the procedure well and had no complications. BRENDA DHALIWAL MD Apr 02, 2021 13:42
--- NOTE | 2021-04-02 13:43 | PDOC4 ---
Procedure Note: ICD 10 Code: ICD 10 Code: M54.16 M51.36 Procedure Note: Patient was consented for lumbar epidural steroid injection with fluoroscopic guidance. Risks were discussed including but not limited to: Bleeding, infection, possibility of epidural hematoma and subsequent neurological compromise, dural puncture, headaches, spinal cord and/or nerve damage, side effects of steroid medication, and poor results regarding pain control. Patient understands and wished to proceed Procedure is lumbar epidural steroid injection under local anesthetic using sterile prep and drape at the L4-5 level using C-arm fluoroscopic guidance in both AP and lateral views medications injected is 120 mg Depo-Medrol +10mL preservative-free normal saline and 2 mL contrast- condition at discharge is stable patient tolerated procedure well had no complications. BRENDA DHALIWAL MD Apr 02, 2021 13:43
== END | disposition home or self-care (01) ==
LOC: PNCL 12:54
PROVIDERS: ATTEND Anesthesiology
DX: M51.16 Intervertebral disc disorders with radiculopathy, lumbar region (principal); M19.011 Primary osteoarthritis, right shoulder; M75.101 Unspecified rotator cuff tear or rupture of right shoulder, not specified as traumatic; Z79.82 Long term (current) use of aspirin; Z79.84 Long term (current) use of oral hypoglycemic drugs; Z79.899 Other long term (current) drug therapy; Z88.8 Allergy status to other drugs, medicaments and biological substances
CPT/HCPCS: 62323; J1030; J1040; Q9965

== ENCOUNTER → 2021-04-17 | Outpatient (CLI) | payer MEDICARE ==
[~2021-04-17] MED LIST changes: -IOHEXOL 180 MG/ML 10 ML VIAL. ONE; -methylPREDNISolone ACETATE 40 MG/ML VIAL. ONE; -methylPREDNISolone ACETATE 80 MG/ML VIAL. ONE
--- NOTE | 2021-04-17 14:30 | PDOC ---
Progress Note - Pain Clinic Date of Service: DOS: DATE: 04/17/21 TIME: 14:27 Diagnosis: Dx: Radiculopathy with lumbar degenerative disc disease Right shoulder joint pain with osteoarthritis and rotator cuff tear History or Present Illness: HPI: 70-year-old male returns for follow-up status post lumbar epidural steroid injection x2. Patient reports doing very well about 75% improved with some ashleigh r pain in the low back and right and left lower extremities bilaterally with radiation but doing much better patient is quite pleased with his progress is increasing activity with greater ease and comfort walking greater distances with greater comfort travel with greater ease as well has sleeping better patient reports his right shoulder also is doing very well after injection which was March 19, 2021 patient reports he is sleeping better on his right side rates his pain as a form scale 10 is worst past week 3 on average to its least is a 2 today. Patient scribes it as sharp and aching in the shoulder sometimes stabbing and burning in the low back and radiating into the lower extremities with some numbness which is more constant in the lateral posterior thighs as well. Patient reports no new motor or sensory deficits no bowel or bladder incontinence. Physical Exam: VS: Blood pressure is 149/73 pulse 71 respirations are 16 temperature is 98.6 F weight is 281 pounds PE: PHYSICAL EXAMINATION: GENERAL: The patient is awake, alert, oriented, appropriate, very pleasant in demeanor HEENT: Shows normocephalic, atraumatic. Extraocular movements are intact and symmetrical. Patient wearing eyeglasses. Oral cavity: Mucous membranes moist and pink. Dentition is intact. NECK: Shows anterior throat supple without palpable lymphadenopathy noted. Swallow reflex symmetrical. CHEST: Shows normal on inspection. Breath sounds are clear bilaterally. HEART: Shows S1, S2 clear. No murmurs auscultated. ABDOMEN: Soft, nontender, nondistended. No palpable organomegaly is noted. No rebound or guarding demonstrated. BACK: Shows spine grossly in the midline. Normal-appearing cervical lordotic curvature. There is increased thoracic kyphosis, some flattening of the lumbar lordotic curvature. Lumbar paraspinous muscles show symmetrical on inspection, on palpation shows some moderate tenderness diffusely throughout the upper, middle and lower distribution of the paraspinous muscles, but without specific trigger points, without radiation of pain. The patient has good rotational motion of the lumbar spine, both laterally as well as extension and flexion without significant difficulty. EXTREMITIES: Lower extremities show deep tendon reflexes 2 in the patellar and tendo calcaneus tendons. Motor exam is 4 on a scale of 5 with right dorsiflexion, extension, quadriceps and hamstring flexion and 4/5 on the left. Peripheral pulses are 1+ posterior tibial. No peripheral edema is noted bilaterally. Lower extremities are warm and dry. SKIN: Shows warm and dry, good turgor. No edema. No sores, rashes or bruising throughout. Procedure: Procedure: Options were discussed with the patient. Patient's old chart was reviewed as his current medication regimen updated current review of systems updated today as well. We will hold on further injection at this time patient doing quite a bit better. Patient was encouraged to increase activity as tolerated also maintain stretching strength and exercises and heat application to the low back as necessary. Patient continue with [id number] oral analgesics as well. Patient will follow up in approximately 4 weeks or sooner if pain returns. Medication Injected: Med Injected: None Condition at Discharge: Condition at Discharge: Condition at discharge is stable. BRENDA DHALIWAL MD Apr 17, 2021 14:30
== END | disposition home or self-care (01) ==
LOC: PNCL 13:10
PROVIDERS: ATTEND Anesthesiology
DX: M51.16 Intervertebral disc disorders with radiculopathy, lumbar region (principal); M19.011 Primary osteoarthritis, right shoulder; M75.101 Unspecified rotator cuff tear or rupture of right shoulder, not specified as traumatic; Z79.82 Long term (current) use of aspirin; Z79.4 Long term (current) use of insulin; Z79.899 Other long term (current) drug therapy; Z88.8 Allergy status to other drugs, medicaments and biological substances
CPT/HCPCS: 99212; G0463

== ENCOUNTER → 2021-05-15 | Outpatient (CLI) | payer MEDICARE ==
[~2021-05-15] MED LIST changes: +BUPIVACAINE MPF 0.25% 10 ML VIAL. ONE; +IOHEXOL 180 MG/ML 10 ML VIAL. ONE; +methylPREDNISolone ACETATE 80 MG/ML VIAL. ONE
--- NOTE | 2021-05-15 13:34 | PDOC ---
Progress Note - Pain Clinic Date of Service: DOS: DATE: 05/15/21 TIME: 13:28 Diagnosis: Dx: Right shoulder joint pain with osteoarthritis and rotator cuff tear Lumbar radiculopathy with lumbar degenerative disc disease History or Present Illness: HPI: 70-year-old male returns for follow-up status post lumbar epidural steroid injections x2 with near 100% improvement for the past 2 months patient reports his back and legs are doing much better still some pain across the low back into the bilateral lower extremities but mostly in the back itself and is very manageable patient's chief complaint today is right shoulder pain patient has history of osteoarthritis as well as rotator cuff tear in the right shoulder status post rotator cuff repair patient reports that the pain is getting worse in the right shoulder with reaching over his head with his right hand repetitive motions abduction past 45 to 50 degrees on the right side as well as weightbearing repetitive motions driving and sleeping patient reports it wakes him from sleep if he lays on his right side only otherwise he generally sleeps through the night without disturbance. Patient reports his pain is a 10 on scale 10 is worse over the past week 8 on average and the fibrous least is a 5 today patient's back pain is only a 4 on a scale of 10 at its worst 3 on average into its least and is a 2 today as well. Patient reports no new motor or sensory deficits no bowel or bladder incontinence. Physical Exam: VS: Blood pressure is 140/63 pulse 73 respirations 18 temperature 98.3 F weight is 282 pounds PE: PHYSICAL EXAMINATION: GENERAL: The patient is awake, alert, oriented, appropriate, very pleasant and demeanor HEENT: Shows normocephalic, atraumatic. Extraocular movements are intact and symmetrical. Patient wearing eyeglasses. Oral cavity: Mucous membranes moist and pink. Dentition is intact. NECK: Shows anterior throat supple without palpable lymphadenopathy noted. Swallow reflex symmetrical. CHEST: Shows normal on inspection. Breath sounds are clear bilaterally. HEART: Shows S1, S2 clear. No murmurs auscultated. ABDOMEN: Soft, nontender, nondistended, obese. No palpable organomegaly is noted. BACK: Shows spine grossly in the midline. Normal-appearing cervical lordotic curvature. There is increased thoracic kyphosis, some flattening of the lumbar lordotic curvature. Lumbar paraspinous muscles show symmetrical on inspection, on palpation shows some moderate tenderness diffusely throughout the upper, middle and lower distribution of the paraspinous muscles, but without specific trigger points, without radiation of pain. The patient has good rotational motion of the lumbar spine, both laterally as well as extension and flexion without significant difficulty. No tenderness over the spinous processes, sacrum or sacroiliac regions. EXTREMITIES: Lower extremities show deep tendon reflexes 2+ in the patellar and tendo calcaneus tendons. Motor exam is 4 on a scale of 5 with right dorsiflexion, extension, quadriceps and hamstring flexion and 4/5 on the left. Peripheral pulses are 1 posterior tibial. No peripheral edema is noted bilaterally. Lower extremities are warm and dry. 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 Patient's right shoulder shows well-healed surgical scar anteriorly with mobility shows significant tenderness with abduction past about 45 degrees and resistance shoulder shrug strong intact again with pain reported with resistance on the right side only. Patient has tenderness with direct palpation over the anterior aspect of the joint and the biceps groove with some moderate tenderness as well as in the lateral deltoid distribution. SKIN: Shows warm and dry, good turgor. No edema. No sores, rashes or bruising throughout. Procedure: Procedure: Options were discussed with patient. Patient chart was reviewed to current medication regimen updated current review of systems updated today as well. We will proceed with a right intra-articular shoulder joint injection today with fluoroscopic guidance. Risks were discussed including but not limited to bleeding infection possibility of intravascular injection and sequelae of spread of local anesthetic, numbness side effects steroid medication portals regarding pain control. Patient understands and wishes to proceed. Patient will return to the clinic in approximately 4 weeks for follow-up, was counseled as to return appointment, activity level, and side effects to be aware of. Medication Injected: Med Injected: Patient supine position under sterile prep and drape using C-arm fluoroscopic guidance patient's right shoulder was visualized and using 25-gauge needle 1% lidocaine was used to topically anesthetized area over the glenohumeral joint on the right. Using a 22-gauge Quincke needle with stylette the joint was entered under direct fluoroscopic visualization without difficulty stylet was removed at this time 2 cc of contrast was injected with good intra-articular spread in the shoulder joint without uptake. At this time 3 cc of 0.25% bupivacaine and 80 mg Depo-Medrol was then injected into the joint. Needle was removed and sterile bandage was applied. Patient tolerated the procedure well and had no complications. Condition at Discharge: Condition at Discharge: Condition at discharge stable, patient tolerated the procedure well and had no complications. BRENDA DHALIWAL MD May 15, 2021 13:34
--- NOTE | 2021-05-15 13:35 | PDOC4 ---
Procedure Note: ICD 10 Code: ICD 10 Code: M25.511 M19.011 Procedure Note: Patient was consented for right intra-articular shoulder joint(glenohumeral) injection with fluoroscopic guidance. Risk were discussed including but not limited to bleeding infection possibility of intravascular injection sequelae spread local anesthetic numbness side effects of steroid medication, exposure to fluoroscopy, and poor results regarding pain control. Patient understands wishes to proceed. Patient supine position under sterile prep and drape using C-arm fluoroscopic guidance patient's right shoulder was visualized and using 25-gauge needle 1% lidocaine was used to topically anesthetized area over the glenohumeral joint on the right. Using a 22-gauge Quincke needle with stylette the joint was entered under direct fluoroscopic visualization without difficulty stylet was removed at this time 2 cc of contrast was injected with good intra-articular spread in the shoulder joint without uptake. At this time 3 cc of 0.25% bupivacaine and 80 mg Depo-Medrol was then injected into the joint. Needle was removed and sterile bandage was applied. Patient tolerated the procedure well and had no complications. BRENDA DHALIWAL MD May 15, 2021 13:35
== END | disposition home or self-care (01) ==
LOC: PNCL 12:53
PROVIDERS: ATTEND Anesthesiology
DX: M19.011 Primary osteoarthritis, right shoulder (principal); M75.101 Unspecified rotator cuff tear or rupture of right shoulder, not specified as traumatic; Z79.82 Long term (current) use of aspirin; Z79.4 Long term (current) use of insulin; Z79.899 Other long term (current) drug therapy; Z88.8 Allergy status to other drugs, medicaments and biological substances
CPT/HCPCS: 20610; 77002; J1040; J3490; Q9965

== ENCOUNTER → 2021-06-02 | Outpatient (CLI) | payer MEDICARE ==
[~2021-06-02] MED LIST changes: -BUPIVACAINE MPF 0.25% 10 ML VIAL. ONE; -IOHEXOL 180 MG/ML 10 ML VIAL. ONE; -methylPREDNISolone ACETATE 80 MG/ML VIAL. ONE
--- NOTE | 2021-06-02 20:43 | KCIC ---
EXAM: MRI right shoulder DATE: 06/02/2021 1:55 PM COMPARISON: None INDICATION: Reason: RIGHT SHOULDER PAIN / Spl. Instructions: Pain and LROM. / History: Recent slip an d fall on the ice with trauma to right upper arm. TECHNIQUE: Multiplanar, multisequence MRI of the right shoulder was performed without contrast. FINDINGS: AC joint degenerative changes are seen with inferior projecting osteophytes. Type I acromion. No os a cromiale. Subacromial-subdeltoid bursal edema, bursitis. Partial-thickness articular sided tear of the supraspi natus tendon measures approximately 50 percent tendon thickness. There is a full-thickness, full widt h tear of the infraspinatus tendon with retraction medial to the glenoid. Marked edema/strain within the infraspinatus muscle belly without fatty atrophy. Edema within the deltoid at the acromial attach ment, strain. No discrete rotator cuff tear is seen. Long head head biceps tendon is intact. Articular cartilage is grossly preserved. No acute fracture or osteonecrosis. Focal cortical deformit y at the lateral aspect of the surgical neck of the humerus, stable to 01/16/2020, possibly from old in jury/fracture. IMPRESSION: 1. Full-thickness, full width tear of the infraspinatus tendon with retraction medial to the glenoid . 2. Marked infraspinatus muscle edema, strain 3. Strain within the deltoid at the acromial attachment. 4. Chronic deformity of the lateral aspect of the surgical neck humerus, stable to 01/16/2020 possibly from old fracture. 5. AC joint DJD. Electronically signed by: Madhav Nguyen MD (06/02/2021 8:41 PM) JACK
== END ==
LOC: KCIC MRI 13:38
PROVIDERS: ATTEND Family Medicine
DX: S46.911A Strain of unspecified muscle, fascia and tendon at shoulder and upper arm level, right arm, initial encounter (principal); M25.711 Osteophyte, right shoulder; M19.011 Primary osteoarthritis, right shoulder; X58.XXXA Exposure to other specified factors, initial encounter; Y93.89 Activity, other specified; Y92.89 Other specified places as the place of occurrence of the external cause; W10.1XXA Fall (on)(from) sidewalk curb, initial encounter; Y99.8 Other external cause status
CPT/HCPCS: 73221

== ENCOUNTER → 2021-07-11 | Outpatient (CLI) | payer MEDICARE ==
[~2021-07-11] MED LIST changes: +DEXAMETHASONE PRES.FREE 10 MG/ML VIAL. ONE; +IOHEXOL 180 MG/ML 10 ML VIAL. ONE
--- NOTE | 2021-07-11 13:56 | PDOC ---
Progress Note - Pain Clinic Date of Service: DOS: DATE: 07/11/21 TIME: 13:52 Diagnosis: Dx: Lumbar radiculopathy with lumbar degenerative disc disease Right shoulder joint pain with osteoarthritis and rotator cuff tear History or Present Illness: HPI: 71-year-old male returns for follow-up status post right shoulder joint injection patient reports he did very well near 100% improvement even though he fell the day after the injection pain is still significantly reduced patient has had recent MRI scan which we reviewed with him today of the right shoulder showing a full-thickness full width tear of the infraspinatus tendon with retraction medially to the glenoid patient reports he still has full function is feeling so much better after the shot he is quite pleased with his progress and is still 100% improved after the injection which he had May 15, 2021. Patient reports her chief complaint today is low back and bilateral lower extremity pain pain slightly more on the right than the left but present in the back rating the posterior gluteus lateral thigh anterior thigh medial thigh medial lower legs worse with walking standing changing positions better with sitting or laying down patient reports it generally does not awaken her from sleep at night is worse with sitting for greater than 30minutes and walking for more than 5 to 10 minutes. Patient reports is a 5 on a scale of 10 at its worst over the past week 3 on average 0 its least is a 3 today. Patient reports no bowel or bladder no loss of motor function but significant fatigability of the lower extremities bilaterally with walking and standing. Physical Exam: VS: Blood pressure is 135/70 pulse 77 respirations 18 temperature 98.5 F height is 5 foot 10 inches weight is 259 pounds. PE: PHYSICAL EXAMINATION: GENERAL: The patient is awake, alert, oriented, appropriate, very pleasant in demeanor HEENT: Shows normocephalic, atraumatic. Extraocular movements are intact and symmetrical. Patient wearing eyeglasses. Oral cavity: Mucous membranes moist and pink. Dentition is intact. NECK: Shows anterior throat supple without palpable lymphadenopathy noted. Swallow reflex symmetrical. CHEST: Shows normal on inspection. Breath sounds are clear bilaterally, no rales rhonchi or wheezes auscultated. HEART: Shows S1, S2 clear. No murmurs auscultated. ABDOMEN: Soft, nontender, nondistended. No palpable organomegaly is noted. BACK: Shows spine grossly in the midline. Normal-appearing cervical lordotic curvature. There is mildly increased thoracic kyphosis, some flattening of the lumbar lordotic curvature. Lumbar paraspinous muscles show symmetrical on inspection, on palpation shows some moderate tenderness diffusely throughout the upper, middle and lower distribution of the paraspinous muscles, but without specific trigger points, without radiation of pain. The patient has good rotational motion of the lumbar spine, both laterally as well as extension and flexion without significant difficulty. No tenderness over the spinous processes, sacrum or sacroiliac regions. EXTREMITIES: Lower extremities show deep tendon reflexes 2+ in the patellar and tendo calcaneus tendons. Motor exam is 4 on a scale of 5 with right dorsiflexion, extension, quadriceps and hamstring flexion and 4/5 on the left. Peripheral pulses are 1+ posterior tibial. No peripheral edema is noted bilaterally. Lower extremities are warm and dry to touch, equal in color and appearance. SKIN: Shows warm and dry, good turgor. No edema. No sores, rashes or bruising throughout. Procedure: Procedure: Options were discussed with the patient. Patient's old chart was reviewed as his current medication regimen updated current review of systems updated today as well. We will proceed with a lumbar epidural steroid injection today with fluoroscopic guidance risks were discussed including but not limited to: Bleedin g, infection, possibility of epidural hematoma and subsequent neurological compromise, dural puncture, headaches, spinal cord and/or nerve damage, side effects of steroid medication, and poor results regarding pain control. Patient understands and wished to proceed. Patient will return to the clinic in approximately 2 weeks for follow-up, was counseled as to return appointment, a ctivity level, and side effect to be aware of. Medication Injected: Med Injected: Procedure is lumbar epidural steroid injection under local anesthetic using sterile prep and drape at the L4-5 level using C-arm fluoroscopic guidance in both AP and lateral views medications injected is 20 mg dexamethasone +10mL preservative-free normal saline and 2 mL contrast- condition at discharge is stable patient tolerated procedure well had no complications. Condition at Discharge: Condition at Discharge: Condition at discharge stable, paced tolerated procedure well had no compli cations. BRENDA DHALIWAL MD Jul 11, 2021 13:56
--- NOTE | 2021-07-11 13:56 | PDOC4 ---
Procedure Note: ICD 10 Code: ICD 10 Code: M54.16 M51.36 Procedure Note: Patient was consented for lumbar epidural steroid injection with fluoroscopic guidance. Risks were discussed including but not limited to: Bleeding, infection, possibility of epidural hematoma and subsequent neurological compromise, dural puncture, headaches, spinal cord and/or nerve damage, side effects of steroid medication, and poor results regarding pain control. Patient understands and wished to proceed. Procedure is lumbar epidural steroid injection under local anesthetic using sterile prep and drape at the L4-5 level using C-arm fluoroscopic guidance in both AP and lateral views medications injected is 20 mg dexamethasone +10mL preservative-free normal saline and 2 mL contrast- condition at discharge is stable patient tolerated procedure well had no complications. BRENDA DHALIWAL MD Jul 11, 2021 13:56
== END | disposition home or self-care (01) ==
LOC: PNCL 12:40
PROVIDERS: ATTEND Anesthesiology
DX: M51.16 Intervertebral disc disorders with radiculopathy, lumbar region (principal); M19.011 Primary osteoarthritis, right shoulder; M75.101 Unspecified rotator cuff tear or rupture of right shoulder, not specified as traumatic; Z79.4 Long term (current) use of insulin; Z79.899 Other long term (current) drug therapy; Z88.8 Allergy status to other drugs, medicaments and biological substances
CPT/HCPCS: 62323; J1100; Q9965